=== PATIENT | female | born 1950 | race Caucasian/White ===

== ENCOUNTER 2020-08-26 22:10 | Outpatient (RCR) | payer MEDICARE, SELFPAY ==
[2020-08-26] MEDS: COVID-19 VACC, MRNA(PFIZER)/PF 30 MCG/0.3 ML SYRINGE IM (17:37)
[2020-09-16] MEDS: COVID-19 VACC, MRNA(PFIZER)/PF 30 MCG/0.3 ML SYRINGE IM (17:22)
== END 2020-11-30 23:59 ==
LOC: IMMUN 22:10
PROVIDERS: PCP Family Medicine; Visit Provider Family Medicine
DX: Z23 Encounter for immunization (principal)
CPT/HCPCS: 0001A; 0002A; 91300